=== PATIENT | female | born 1960 | race Hispanic/Latino ===

== ENCOUNTER → 2025-05-24 13:15 | Outpatient (CLI) | payer MEDICARE, OTHER, SELFPAY ==
--- NOTE | 2025-05-24 13:24 | DI.MG.S_ITS ---
MM clip placement LT: 05/24/2025. BI-RADS: None CLINICAL: 65-year old female for left diagnostic mammogram. Tyrer-Cuzick lifetime risk of 8.5%. No personal or first-degree family history of breast cancer. The patient reports a palpable abnormality (1 month) in the left breast. PRIOR EXAMS Mammogram(s): 05/12/2025. 05-06-18 Breast Ultrasound(s): 05/12/2025. MAMMOGRAPHY TECHNIQUE: 2D and/or 3D (tomosynthesis) digital mammographic views obtained, with additional images as needed for full coverage. DENSITY Left: C. The breast is heterogeneously dense, which may obscure small masses. MAMMOGRAPHY FINDINGS Left: Upper Inner at 10:30, 8 cm from nipple, previously measuring (05/12/2025) 4.3 x 4.1 x 4.1cm: There is a round mass present. There is an (Unspecified) biopsy marker in targeted location. IMPRESSION: Left * Biopsy marker present. OVERALL ASSESSMENT CATEGORY BI-RADS None: This exam requires no BI-RADS. ELECTRONICALLY SIGNED: Teddy Antonio M.D. on 05/27/2025 at 08:16:52 AM PT Interpreting Station ID: [id number]
--- NOTE | 2025-05-24 13:24 | DI.US.S_ITS ---
Left US bx breast perc w vac device: 05/24/2025. Rad-Path Correlation: Pending CLINICAL: 65-year old female for left procedure that resulted from diagnostic mammogram on 05/12/2025. Tyrer-Cuzick lifetime risk of 8.5%. No personal or first-degree family history of breast cancer. The patient reports a palpable abnormality (1 month) in the left breast. CONSENT Risks including but not limited to bleeding and infection, benefits and alternatives were discussed with the patient. The patients agreed to the procedure, reported no allergy to local anesthesia and signed the consent form. ROUTINE Left: Patient positioned in the sitting position, prepped and draped in the usual manner using sterile technique. TECHNIQUE Left Breast: Upper Inner at 10:30: Procedure: Ultrasound-guided vacuum-assisted biopsy of a mass. Device: 11-gauge vacuum-assisted biopsy instrument. Mammotome(R). Anesthesia: Local anesthesia obtained using 5 ml 1%-lidocaine. Secondary local anesthesia obtained using 5 ml 2%-lidocaine with epinephrine. Skin Entry: Incision with #11 blade. Passes: 4. Specimens: 4. Post-procedure imaging: Post-procedure mammogram. Rad/Path Correlation: Pending receipt of pathology report. Conclusion: Ultrasound-guided Vacuum-assisted biopsy with post-procedure mammogram, Left Breast: Upper Inner at 10:30 COMPLICATIONS: No complications were encountered while the patient was in our department. DISPOSITION The patient left our department in good condition with aftercare instructions and urged to contact us should any problem arise. SUMMARY Left Breast: Upper Inner at 10:30: Ultrasound-guided vacuum-assisted biopsy of a mass. PATHOLOGY Left Breast: Upper Inner at 10:30: Radiologist-Pathologist Correlation: Pending receipt of pathology report. ELECTRONICALLY SIGNED: Teddy Antonio M.D. on 05/27/2025 at 08:14:20 AM PT Interpreting Station ID: [id number]
--- NOTE | 2025-05-24 14:45 | PATH_ITS ---
[facility] Accession Number: [id number] No. of containers..01 Tissue . 01 Material submitted: . breast - LT BREAST 10:30 8CM FN . 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 Outside consultation pending ([facility]); results will be reported as an addendum. [facility] 05/28/2025 1543 Local . 01 Comment: This case was also reviewed by Drs. Madison Cerrato and Celio Pichardo (Julie), who agree with the interpretation. . Dr. Drea Sifuentes made multiple unsuccessful attempts to reach Dr. Hoang Christiansen's care team regarding results on 05-28-25 between 3:12 and 3:38 p.m. Voice message left on 05-28-25 at approximately 3:42 p.m. ([phone]). . 01 Electronically signed: . Drea Sifuentes MD, Pathologist NPI- [id number] . 01 Gross description: . Received in formalin with two identifiers and LT breast are multiple fragments of hemorrhagic material with minimal yellow-obando soft tissue identified aggregating to 3.1 x 2.5 x 0.4 cm. Filtered and submitted entirely in A1. . The specimen was removed on 05/24/2025, time not provided. Cold ischemic cannot be calculated. Total fixation time is approximately 30 hours. ([id number]) /MRV 05/25/2025 1731 Local . 01 Microscopic: . Block A1 MCKENZIE: Positive. SOX10: Positive. Mammoglobin: Rare positive. GATA3: Negative. HMB45: Negative. Desmin: Negative. ERG: Negative. SMA: Ambiguous staining pattern. ER: Negative (no internal control). OK: Negative (no internal control). HER2: Negative (no internal control). Ki67: High (Approximately 30%). . The lesional cells are strongly positive for MCKENZIE and E-cadherin with rare cells positive for mammoglobin. They are negative for GATA3, HMB45, Desmin, ERG, and have an unusual membranous-type staining pattern for SMA. Lesional cells are also negative for ER, OK, and HER2 with no identifiable internal control staining. Ki67 staining appears high at approximately 30%. Due to the negative GATA3 results, definitive classification is deferred for outside consultation. . Deparaffinized sections of formalin-fixed tissue (along with appropriate positive and negative controls) are incubated with the following antibody(s). Using the automated [employer] [place] stainer, tissue is incubated with the designated antibody which is then localized by a non-biotin, dual polymer detection system. The controls are reviewed for appropriate reactivity and found to be adequate. Results on the target cell population are indicated below: . Some of the immunohistochemistry stains reported below were developed and their performance characteristics determined by [employer] They have not been cleared or approved by the [place]. Food and Drug Administration, although such approval is not required for analyte-specific reagents of this type. . 01 Pathologist provided ICD-10: C50.912 . 01 CPT . 278719, D46463, 691038, D26463 Specimen Comment: A courtesy copy of this report has been sent to [phone] Performed at: [address] [address], [place], [place] [id number] MD Alex Parker MD Phone: [phone]
== END ==
PROVIDERS: PCP Family Medicine
DX: C50.312 Malignant neoplasm of lower-inner quadrant of left female breast (principal); Z17.0 Estrogen receptor positive status [ER+]; Z17.22 Progesterone receptor negative status
CPT/HCPCS: 19083; 77065